=== PATIENT | female | born 1995 | race Caucasian/White ===

== ENCOUNTER 2018-09-14 14:08 | Emergency (ER) | payer OTHER ==
[2018-09-14] MEDS ORDERED: Sodium Chloride 0.9% 100 ML ONE (14:23)
[2018-09-14] MEDS ORDERED: cefTRIAXone\\ROCEPHIN 2 GM VIAL ONE (14:23)
[2018-09-14] MEDS ORDERED: Azithromycin 250 MG TAB ONE (14:27)
== END 2018-09-14 16:25 | disposition home or self-care (01) ==
LOC: SCSER 14:08
DX: J18.9 Pneumonia, unspecified organism (principal); E03.9 Hypothyroidism, unspecified; K21.9 Gastro-esophageal reflux disease without esophagitis; F41.9 Anxiety disorder, unspecified; F32.9 Major depressive disorder, single episode, unspecified; Z79.01 Long term (current) use of anticoagulants; Z79.899 Other long term (current) drug therapy; Z79.51 Long term (current) use of inhaled steroids
CPT/HCPCS: 80053; 84443; 85025; 85379; 96361; 96365; J0696; J7050; J7620